=== PATIENT | male | born 1980 | race Caucasian/White ===

== ENCOUNTER 2017-02-04 13:47 | Emergency (ER) | payer SELFPAY ==
[2017-02-04 13:47] VITALS: BMI 28.1
[2017-02-04 13:52] VITALS: BP 133/89; PULSE 83; TEMP 97.7; O2SAT 96
--- NOTE | 2017-02-04 14:03 | C.PDOC ---
History Of Present Illness 36 yr old male presents to the ER for suture removal from scalp. Patient reports he had the staple put in 5 days ago, had 4 cecilia put in and 1 fell out since having them in. Patient denies fever, nausea, vomiting, signs of infection, headache, weakness or numbness. Time Seen by Provider: 02/04/17 13:58 Chief Complaint (Nursing): Suture/Staple Removal History Per: Patient Onset/Duration Of Symptoms: Days Ago (5) Past Medical History Reviewed: Historical Data, Nursing Documentation, Vital Signs Vital Signs: Last Vital Signs Temp 97.7 F 02/04/17 13:49 Pulse 83 02/04/17 13:49 Resp 20 02/04/17 13:49 BP 133/89 02/04/17 13:49 Pulse Ox 96 02/04/17 14:03 - Medical History PMH: Asthma - [facility] Procedures CLOSURE SKIN & SUBCUTANEOUS NEC (10/13/13) TETANUS TOXOID ADMINIST (10/13/13) Family History: States: No Known Family Hx - Social History Hx Tobacco Use: No Hx Alcohol Use: Yes Hx Substance Use: No (PT DENIES) - Immunization History Hx Tetanus Toxoid Vaccination: Yes Hx Influenza Vaccination: Yes Hx Pneumococcal Vaccination: No Review Of Systems Except As Marked, All Systems Reviewed And Found Negative. Constitutional: Negative for: Fever Gastrointestinal: Negative for: Nausea, Vomiting Skin: Positive for: Other (3 cecilia on the scalp) Neurological: Negative for: Weakness, Numbness Physical Exam - Physical Exam Appears: Non-toxic, No Acute Distress Skin: Warm, Dry Head: Atraumatic, Normacephalic, No Swelling Eye(s): bilateral: Normal Inspection, PERRL, EOMI Chest: Symmetrical, No Tenderness Cardiovascular: Rhythm Regular, No Murmur Extremity: Normal ROM, No Swelling Neurological/Psych: Oriented x3, Normal Speech, Normal Motor ED Course And Treatment O2 Sat by Pulse Oximetry: 96 Medical Decision Making Medical Decision Making: NOTE: 3 cecilia removed from the scalp. Wound is well healed. No signs of infections. No drainage. Disposition Counseled Patient/Family Regarding: Diagnosis, Need For Followup - Disposition Referrals: [facility] [Outside] [facility] [Outside] Disposition: HOME/ ROUTINE Disposition Time: 14:02 Condition: IMPROVED Forms: General Discharge Instructions - Clinical Impression Clinical Impression: Removal of cecilia - Scribe Statement The provider has reviewed the documentation as recorded by the Catherineibe Shital Perez Provider Attestation: All medical record entries made by the Catherineibbeny were at my direction and personally dictated by me. I have reviewed the chart and agree that the record accurately reflects my personal performance of the history, physical exam, medical decision making, and the department course for this patient. I have also personally directed, reviewed, and agree with the discharge instructions and disposition. Suture Removal/Wound Check - Time Time: 14:05 - Historian Historian: Patient - Chief Complaints Chief complaint: Suture removal - Treated at Antibiotics prescribed:: No - Symptoms since last ED visit Symptoms since last ED visit:: None - Location Right/Left:: head (scalp, 3) - Severity of pain Severity Current: None
[2017-02-04 14:09] VITALS: RESP 18
== END 2017-02-04 14:09 | disposition home or self-care (01) ==
LOC: C.ER 13:47
DX: Z48.02 Encounter for removal of sutures (principal)

== ENCOUNTER 2017-03-08 16:38 | Emergency (ER) | payer OTHER ==
--- NOTE | 2017-03-08 16:34 | RAD ---
HISTORY: Cough, wheezing COMPARISON: No prior. TECHNIQUE: Chest PA and lateral FINDINGS: LUNGS: The lungs are well inflated and clear. PLEURA: No significant pleural effusion identified. No pneumothorax apparent. CARDIOVASCULAR: Normal. OSSEOUS STRUCTURES: No significant abnormalities. VISUALIZED UPPER ABDOMEN: Normal. OTHER FINDINGS: None. IMPRESSION: No active pulmonary disease.
[~2017-03-08 16:38] MED LIST: Albuterol-Ipratrop 3 mg / 0.5 (3 ml) UD ONE
[2017-03-08 19:03] VITALS: BP 134/75; PULSE 89; RESP 18; TEMP 99; O2SAT 97
== END 2017-03-08 19:04 | disposition home or self-care (01) ==
LOC: C.CTH 16:38 → C.ER 16:38 → C.CTH 19:04 → C.ER 19:04
DX: J20.9 Acute bronchitis, unspecified (principal); Z72.0 Tobacco use

== ENCOUNTER 2017-05-17 22:09 | Emergency (ER) | payer MEDICAID, OTHER ==
[2017-05-17 22:09] VITALS: BMI 28.1
[2017-05-17 22:17] VITALS: RESP 20
--- NOTE | 2017-05-17 23:04 | C.PDOC ---
History Of Present Illness Patient was brought to the ER by EMS after being found inebriated. Patient denies any physical complaints at this time. Time Seen by Provider: 05/17/17 23:04 Chief Complaint (Nursing): Substance Abuse History Per: Patient History/Exam Limitations: no limitations Onset/Duration Of Symptoms: Hrs Current Symptoms Are (Timing): Still Present Suicide/Self Injury Attempted (Context): None Modifying Factor(s): Alcohol Severity: None Pain Scale Rating Of: 0 Associated Symptoms: denies: Depression, Suicidal Thoughts, Suicidal Plan Involuntary Hold By: None Recent travel outside of the [place]: No Past Medical History Reviewed: Historical Data, Nursing Documentation, Vital Signs Vital Signs: Last Vital Signs Temp 98.2 F 05/17/17 22:15 Pulse 102 H 05/17/17 22:15 Resp 20 05/17/17 22:15 BP 138/100 H 05/17/17 22:15 Pulse Ox 98 05/17/17 23:30 - Medical History PMH: Asthma Surgical History: No Surg Hx - [facility] Procedures CLOSURE SKIN & SUBCUTANEOUS NEC (10/13/13) TETANUS TOXOID ADMINIST (10/13/13) Family History: States: No Known Family Hx - Social History Hx Tobacco Use: No Hx Alcohol Use: Yes Hx Substance Use: Yes - Immunization History Hx Tetanus Toxoid Vaccination: No Hx Influenza Vaccination: No Hx Pneumococcal Vaccination: No Review Of Systems Constitutional: Negative for: Fever, Chills Gastrointestinal: Negative for: Nausea, Vomiting, Diarrhea Physical Exam - Physical Exam Appears: Non-toxic, No Acute Distress, Other (Awake and alert) Skin: Warm, Dry Oral Mucosa: Moist Chest: Symmetrical, No Tenderness Cardiovascular: Rhythm Regular, No Murmur Respiratory: No Rales, No Rhonchi, No Wheezing Gastrointestinal/Abdominal: Soft, No Tenderness Neurological/Psych: Oriented x3 Gait: Steady ED Course And Treatment O2 Sat by Pulse Oximetry: 98 (Room air) Pulse Ox Interpretation: Normal Reevaluation Time: 23:41 Reassessment Condition: Improved Disposition Counseled Patient/Family Regarding: Studies Performed, Diagnosis, Need For Followup - Disposition Referrals: [facility] [Outside] Disposition: HOME/ ROUTINE Disposition Time: 23:04 Condition: FAIR Instructions: Alcohol Intoxication (DC) - Clinical Impression Clinical Impression: Alcohol intoxication - Scribe Statement The provider has reviewed the documentation as recorded by the Scribe Indio Anguloes All medical record entries made by the Scribbeny were at my direction and personally dictated by me. I have reviewed the chart and agree that the record accurately reflects my personal performance of the history, physical exam, medical decision making, and the department course for this patient. I have also personally directed, reviewed, and agree with the discharge instructions and disposition.
[2017-05-18] VITALS: BP 131/79; PULSE 81; TEMP 97.4; O2SAT 99
== END 2017-05-17 23:59 | disposition home or self-care (01) ==
LOC: C.ER 22:09
DX: F10.129 Alcohol abuse with intoxication, unspecified (principal); Y90.9 Presence of alcohol in blood, level not specified